=== PATIENT | male | born 1955 | race Caucasian/White ===

== ENCOUNTER 2024-10-09 10:32 | Outpatient (CLI) | payer MEDICARE ==
[2024-10-09] MEDS ORDERED: iohexol 300mg/ml 100ml inj. ONE (11:17)
== END 2024-10-09 23:59 | disposition home or self-care (01) ==
LOC: RAD 10:32
PROVIDERS: ATTEND Student in an Organized Health Care Education/Training Program
DX: K76.0 Fatty (change of) liver, not elsewhere classified (principal); K62.5 Hemorrhage of anus and rectum; N20.0 Calculus of kidney; K76.89 Other specified diseases of liver; K57.30 Diverticulosis of large intestine without perforation or abscess without bleeding; N40.0 Benign prostatic hyperplasia without lower urinary tract symptoms
CPT/HCPCS: 74177; Q9967